=== PATIENT | female | born 1980 | race Caucasian/White ===

== ENCOUNTER 2016-11-21 11:23 | Day surgery (SDC) | payer OTHER ==
[~2016-11-21] VITALS: Ht 157.5 cm; Wt 68.5 kg
[2016-11-21] VITALS (10 sets, daily range): BP systolic 116–128; BP diastolic 62–77; PULSE 60–100; RESP 13–29; O2SAT 96–100
[~2016-11-21 11:23] MED LIST: FLUT16SP NS; IBUP-1827 PO; LORA10CA PO; METH5TAB5 PO
[2016-11-21] MEDS ORDERED: fentaNYL-PF 50 mCg/mL 2 mL Inj ONE (11:24)
[2016-11-21] MEDS ORDERED: Dexamethasone 4 mg/mL Inj ONE (11:24)
[2016-11-21] MEDS ORDERED: Ondansetron 2 mg/mL 2 mL Inj ONE (11:24)
[2016-11-21] MEDS ORDERED: Propofol 10,000 mCg/mL 20 mL Inj ONE (11:24)
[2016-11-21] MEDS: Lactated Ringer's 1,000 ML IV SCH ×2 (11:38→14:14)
[2016-11-21] MEDS ORDERED: Lactated Ringer's 500 ML IV PRN (14:04)
[2016-11-21] MEDS ORDERED: Lactated Ringer's 1,000 ML IV SCH (14:04)
--- NOTE | 2016-11-21 14:04 | PCM.HPANE ---
Patient Data Surgeon Admitting Provider: Attending Provider:Hi Cross MD Primary Care Physician:Susy Other Provider:Lore Neff Anesthesia Reason for Visit Abnormal Uterine Bleeding Ht/WT & BMI Height (Feet): 5 Height (Inches): 2.00 Weight (Kilograms): 68.490 Body Mass Index 27.00 Allergies Coded Allergies: No Known Allergies (Unverified , 11/15/16) Past Anesthesia History Anesthesia History: Denies:: Anesthesia Reactions, Fam Anesthesia Reaction Diabetes History Hx Diabetes?: No Medications Hypertension Medication: No Home Meds Incl Beta Wander: No Reported Medications Methimazole 5 Mg Tablet5 Mg PO DAILY 30 Days 11/16/16 Ibuprofen 600 Mg [id number] Mg PO TID PRN For Pain Ref 0 11/15/16 Fluticasone Propionate (Fluticasone Propionate Nasal)16 Gm Jackson.susp1 Jackson NS BID #16 GM Ref 0 11/15/16 Loratadine (Claritin)10 Mg [id number] Mg PO DAILY Ref 0 11/15/16 History History of ENT Problems?: Yes HEENT History: Positive for:: Sinus Problem (seasonal allergies) Denies:: Abnormal Airway Cataracts Difficult Intubation Dysphagia Glaucoma Hearing Problem TMJ Denture Type: None Teeth Condition: Within Normal Limits Hx of Heart Problems?: No Cardiovascular History: Positive for:: Irregular Heartbeat (occasional palpitations related to hyperthyroidism) Hx of Respiratory Problem?: No Respiratory History: Denies:: Asthma COPD Chest Surgery Cough Dyspnea Emphysema Hemoptysis Oxygen Administration Pneumonia Pulmonary Embolism Tuberculosis Use of C-PAP Machine Use of Inhalers / NEBS Hx Neurologic Problems?: No Neurological History: Denies:: Alzheimer's Disease CVA Dementia Dizziness Headaches Multiple Sclerosis Parkinson's Disease Peripheral Neuropathy Seizures TIA Hx of GI Problems?: No Hx of Problems?: No Female Hx: Denies:: Currently Hx Musculoskeletal Problems?: No Hx of Psycho/Social Problems?: No Hx Surgeries?: Yes (c sections x 3) Hx Any Other Health Problems?: No Other History: Positive for:: Thyroid Disease (HYPERTHYROID; recent intiation of methimazole) Denies:: Cancer Hx Diabetes: No Hx Alcohol Use: NoHx Substance Use: NoHave You Smoked inLast 12 mo: No Stop/Bang P-Blood Pressure: treated: No B- Body Mass Index > 35 kg/m2: No A- Age over 50: No N- Neck Large Circumference: No G- Gender Male: No HONEY Risk Assessment: Low Risk, <3 Yes Risk Assessment Category Category 1A: Patient has history of documented sleep apnea, and HAS NOT received any narcotic, sedative or anesthesia administration during this stay. Category 1B: Patient has history of documented sleep apnea, and HAS received any narcotic , sedative or anesthesia administration during this stay Category 2: Patient has SUSPECTED Obstructive Sleep Apnea, and HAS received any narcotic , sedative or anesthesia administration during this stay. Category 3: Patient has SUSPECTED Obstructive Sleep Apnea and HAS NOT received narcotic, sedative or anesthesia administration during this stay. Category 4: Outpatient in Procedural Areas with known sleep apnea or who screen positive for High Risk via the STOP/BANG questionnaire. Exam Exam Vital Signs Vital Signs Date Time Temp Pulse Resp B/P Pulse Ox O2 Delivery O2 Flow Rate FiO2 11/21/16 12:05 36.0 73 18 117/65 98 Room Air General Appearance: Alert, Oriented X3, Cooperative, No Acute Distress HEENT/AIRWAY: MP 2, Other (small mouth, micrognathic) Lungs: Clear to Auscultation, Normal Air Movement Heart: Exam Unremarkable, Regular Rate/Rhythm, No Murmurs/Rubs/Gallops Meds/Labs/Diagnostics Admission Meds Current Medications Lactated Ringer's (Lr) 1,000 ml @ 120 mls/hr Q8H20M IV Last administered on t 11:38; Start 11/21/16 at 05:00; Stop 11/21/16 at 13:19 Plan Impression Patient chart reviewed, patient interviewed and anesthestic plan with risks, benefits, and alternatives discussed, and informed consent obtained. NPO per Anesth. Guidelines: Yes ASA Physical Status: ASA2 Mod Systemic Disease Anesthetic Plan: GA Bene/Risks/Altern/Consents: Yes HP Complete Prior to Induction: Yes Igor Pino MD November 21, 2016 12:30
[2016-11-21] MEDS ORDERED: EPHEDrine Sulfate 50 mg/mL Inj IVPUSH PRN (14:05)
[2016-11-21] MEDS ORDERED: Labetalol 5 mg/mL 4 mL Inj IV PRN (14:05)
[2016-11-21] MEDS ORDERED: Atropine 0.4 mg/mL Inj IVPUSH PRN (14:05)
[2016-11-21] MEDS ORDERED: Phenylephrine 10,000 mCg/mL Inj IVPUSH PRN (14:05)
[2016-11-21] MEDS ORDERED: MetoCLOpramide 5 mg/mL 2 mL Inj IVPUSH PRN (14:05)
[2016-11-21] MEDS ORDERED: HYDROmorphone 1 mg/mL Inj IVPUSH PRN ×2 (14:05→15:05)
[2016-11-21] MEDS ORDERED: Ondansetron 2 mg/mL 2 mL Inj IVPUSH PRN ×2 (14:05→15:05)
[2016-11-21] MEDS ORDERED: oxyCODONE-Acetamin 5-325 mg Tablet PO PRN (15:05)
[2016-11-21] MEDS ORDERED: diphenhydrAMINE 25 mg Capsule PO PRN (15:05)
--- NOTE | 2016-11-21 15:06 | PCM.DIGYN ---
Surgical Discharge Instruction Dates of Hospitalization Date of Hospital Admission 11/21/2016 Providers Admitting Physician: Primary Care Physician: Susy Attending Physician: Hi Cross MD Diagnosis at Time of Discharge Diagnosis at time of discharge Abnormal uterine bleeding Problems: Diet Discharge Diet: No restrictions Activity Discharge Activity-General: Try not to overdue, Be up and about, Balance rest and activity, No driving while taking narcotic, Other (no sex for two weeks) Dressing and Incisional Care Hygiene: May shower, NO bathtub, hot tub or whirlpool (until vaginal bleeding and discharge have resolved.) Follow Up Plan Follow-up appointment: Weeks (2) Call your provider for: Fever, Chills, Shortness of breath, Heavy vaginal bleeding, Increasing pain Hi Cross MD November 21, 2016 15:06
[2016-11-21] MEDS: fentaNYL-PF 50 mCg/mL 2 mL Inj IVPUSH PRN ×2 (15:18→15:33)
--- NOTE | 2016-11-21 15:49 | OP ---
[address] [address] OPERATIVE REPORT PATIENT: SLOANE JOVEL : 1980 MR#: [id number] ADMIT: 11/21/2016 JOB ID: [id number] DATE OF SURGERY: 11/21/2016 PREOPERATIVE DIAGNOSIS(ES): Abnormal uterine bleeding. POSTOPERATIVE DIAGNOSIS(ES): Abnormal uterine bleeding. PROCEDURE PERFORMED: 1. NovaSure endometrial ablation. 2. Hysteroscopy D and C. SURGEON: Hi Cross M.D. ANESTHESIA: General. ESTIMATED BLOOD LOSS: 0 mL. COMPLICATIONS: None. PATHOLOGY SENT: 1. Endocervical curettings. 2. Endometrial curettings. FINDINGS AT TIME OF SURGERY: At the time of surgery normal appearing vagina, cervix. Good examination under anesthesia. The uterus was normal shape, size and consistency. Normal-appearing endometrial cavity. No endometrial polyps or fibroids appreciated. PROCEDURE: The patient was taken to the operating room, where her general anesthesia was obtained without difficulty. She was placed in a lithotomy position in the [facility] and prepared and draped in a normal sterile fashion. A bivalve speculum was inserted into the patient's vagina. The cervix was identified grasped with a single-tooth tenaculum. The cervix was dilated to a #8 Hegar cervical dilator. The hysteroscope was then inserted. The endometrial cavity was normal in appearance. There were no endometrial polyps or fibroids appreciated. The hysteroscope was then removed. The uterine cavity length was 6 cm. Cavity width was 2.9 cm. The NovaSure device was inserted and activated and the cavity assessment was confirmed and the NovaSure device was activated and allowed to run its course at 96 flores for 1 minute 37 seconds. The NovaSure then was removed. The hysteroscope was then reinserted and the endometrial cavity was noted to be well ablated. All instruments were then removed from the patient's vagina. All instrument, needle counts, sponge counts were correct x2. At the end of procedure, the patient was taken to the recovery room awake in good condition.
--- NOTE | 2016-11-21 20:15 | PCM.ANEP1 ---
Post Anesthesia PACU Phase 1 Assessment Vital Signs Vital Signs Date Time Temp Pulse Resp B/P Pulse Ox O2 Delivery O2 Flow Rate FiO2 11/21/16 16:45 72 16 122/72 98 Room Air 11/21/16 15:40 36.6 60 14 120/70 98 Room Air 11/21/16 15:35 37 81 19 120/67 96 Room Air 11/21/16 15:30 100 14 121/71 96 Room Air 11/21/16 15:23 97 16 128/74 96 Room Air 11/21/16 15:15 82 29 125/77 100 Simple Mask 10 11/21/16 15:10 78 20 116/72 100 Simple Mask 10 11/21/16 15:05 80 17 121/62 100 Simple Mask 10 11/21/16 15:00 36.5 75 13 122/67 100 Simple Mask 10 Anesthetic Administered: GA Level of Alertness: Awake, talking GROSSMAN's with Equal Strength: Yes Pain: No Nausea or Vomiting: No CV Function & Hydration Stable: Yes Airway Device: Oxygen Delivery: Simple Mask Lungs: Clear to Auscultation, Normal Air Movement PACU Phase 2 Assessment Complications: No Follow up Care: N/A Patient Instructions Provided: N/A Igor Pino MD November 21, 2016 20:15
--- NOTE | 2016-11-22 17:49 | PATH ---
SURGICAL PATHOLOGY Attending Physician:Hi Cross, CASE STATUS: Signed Out PATIENT NAME: SLOANE JOVEL PID: [id number] : 1980 DATE COLLECTED:11/21/2016 00:00 SPECIMEN: 1: Endocervix, Curettage 2: Endometrium, Curettage CLINICAL HISTORY: ABNORMAL UTERINE BLEEDING 1). ENDOCERVICAL CURETTINGS 2). ENDOMETRIAL CURETTINGS FINAL DIAGNOSIS: 1.ENDOCERVICAL CURETTINGS: Scant portions of endocervical tissue; negative for glandular dysplasia and malignancy. 2ENDOMETRIAL CURETTINGS: Portions of disordered proliferative endometrium with focal features of breakdown; negative for glandular hyperplasia, cytologic atypia, and malignancy. Some tissue fragments demonstrate prominent vessels, suggestive of polyp, if clinical and imaging findings are concordant. [id number] GROSS DESCRIPTION: The specimen is received in two formalin filled containers labeled with the patient's name. 1). The specimen is sublabeled "endocervical curettings" and consists of approximately a 0.25 cc aggregate of mucoid material blood which is filtered and entirely submitted in cassette 1A. 2). The specimen is sublabeled "endometrial curettings" and consists of approximately a 0.5 cc aggregate of mucoid material and blood which is filtered and entirely submitted in cassette 2A. 11/22/2016 [facility] MICRO DESCRIPTION: See diagnosis. ICD-9 CODES: CPT CODES: 1: 14619 2: 40226 Electronically Signed Out Grace Mancilla MD [facility] Pathology [facility], [place] [address] Technical component performed at [facility], [address] [place] [address] Ave[address], [place], [address]
== END 2016-11-21 23:59 | disposition home or self-care (01) ==
LOC: SAS 11:23
PROVIDERS: ATTEND Obstetrics & Gynecology
DX: N93.9 Abnormal uterine and vaginal bleeding, unspecified (principal); J30.2 Other seasonal allergic rhinitis; E05.90 Thyrotoxicosis, unspecified without thyrotoxic crisis or storm
CPT/HCPCS: 58563; J1100; J1885; J2250; J2405; J3010; J7120